=== PATIENT | female | born 1985 | race American Indian/Alaskan Native ===

== ENCOUNTER 2019-09-07 04:22 | Inpatient (IN) | payer OTHER ==
[2019-09-07] MEDS ORDERED: AMPICILLIN/NS 2 GM/100 ML 2 GM/100 ML BAG IV ONE (06:13)
[2019-09-07] MEDS ORDERED: TERBUTALINE 1 MG/1 ML INJ IVP PRN (06:13)
[2019-09-07] MEDS ORDERED: ePHEDrine SULFATE 50 MG/1 ML INJ IV PRN ×2 (06:13→08:09)
[2019-09-07] MEDS ORDERED: MINERAL OIL 30 ML ORAL LIQD PO PRN (06:13)
[2019-09-07] MEDS ORDERED: TERBUTALINE 1 MG/1 ML INJ SUB-Q PRN (06:13)
[2019-09-07] MEDS ORDERED: LIDOCAINE (2%) 20 MG/1 ML VIAL 20 ML MDV INFILTRATI ONE (06:13)
[2019-09-07] MEDS: LACTATED RINGERS 1,000 ML IV SCH ×2 (06:30→08:39)
[2019-09-07 06:53] LABS: Hematocrit 35.2 % (30.3-42.9); Hemoglobin 11.4 gm/dl (10.1-14.3); Mean Corpuscular HGB Conc 32 % (30-34); Mean Corpuscular Volume 83 fl (79-97); Platelet Count 190 K/mm3 (140-440); Red Blood Count 4.22 M/mm3 (3.65-5.03); Red Cell Distribution Width 14.8 % (13.2-15.2)
[2019-09-07] MEDS ORDERED: OXYTOCIN 20 UNIT/1000ML DRIP 20 UNITS/1,000 ML BAG IV SCH ×2 (07:00→15:00)
[2019-09-07] MEDS ORDERED: NALOXONE 2 MG/2 ML INJ IV PRN (08:09)
--- NOTE | 2019-09-07 08:26 | History and Physical Report ---
History of Present Illness Date of examination: 09/07/19 Date of admission: 09/07/19 06:14 Chief complaint: Contractions History of present illness: Pt is a 34 yo at 39.6 weeks EGA who presents with regular uterine contractions. She denies LOF or vaginal bleeding. She has received limited care with [facility] since 36 weeks EGA. Her has been complicated by Chlamydia diagnosed on 08/15, treated. She is GBS positive. 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 on 08/15) Family/Genetic History: diabetes, hypertension Social history: no significant social history - Obstetrical History Expected Date of Delivery: 09/07/19 Actual Gestation: 40 Week(s) 0 Day(s) : 1 Para: 0 Medications and Allergies Allergies Allergy/AdvReac Type Severity Reaction Status Date / Time No Known Allergies Allergy Verified 09/07/19 06:21 Active Meds: Active Medications Ephedrine Sulfate (Ephedrine Sulfate) 10 mg IV Q2M PRN PRN Reason: Hypotension Ephedrine Sulfate (Ephedrine Sulfate) 10 mg IV Q2M PRN PRN Reason: Hypotension Oxytocin/Sodium Chloride (Pitocin/Ns 20 Unit/1000ml Drip) 20 units in 1,000 mls @ 125 mls/hr IV DIRECT YEVGENIY Lactated Ringer's (Lactated Ringers) 1,000 mls @ 125 mls/hr IV DIRECT YEVGENIY Last Admin: 09/07/19 06:30 Dose: 125 mls/hr Documented by: Fentanyl/Bupivacaine/Sodium Chlor (Fentanyl-Bupiv 2 Mcg/Ml-0.125%) 200 mcg in 100 mls @ 12 mls/hr EPIDURAL TITR YEVGENIY; Protocol Mineral Oil (Mineral Oil) 30 ml PO QHS PRN PRN Reason: Constipation Naloxone HCl (Naloxone) 0.2 mg IV Q5M PRN PRN Reason: Respiratory sedation Terbutaline Sulfate (Brethine) 0.25 mg SUB-Q ONCE PRN PRN Reason: Hyperstimulation/Hypertonicity Terbutaline Sulfate (Brethine) 0.25 mg IVP ONCE PRN PRN Reason: Hyperstimulation/Hypertonicity Review of Systems All systems: negative Genitourinary: contractions, no vaginal bleeding, no leakage of fluid - Vital Signs Vital signs: Vital Signs Pulse Pulse Ox 84 96 09/07/19 04:56 09/07/19 04:56 Temp Pulse Resp BP Pulse Ox 97.7 F 80 18 123/76 100 09/07/19 05:45 09/07/19 06:16 09/07/19 05:45 09/07/19 06:02 09/07/19 06:16 - Physical Exam Lungs: Positive: Normal air movement Abdomen: Positive: soft Vagina: Positive: normal moisture Uterus: Positive: enlarged (gravid) Extremities: Positive: normal - Obstetrical FHR: category 1 Uterine Contraction Monitor Mode: External Cervical Dilatation: 6 Cervical Effacement Percentage: 70 station: -3 Uterine Contraction Pattern: Regular Uterine Tone Measurement Phase: Contraction Uterine Contraction Intensity: Strong/Firm Results Result Diagrams: 09/07/19 06:30 Abnormal lab results 09/07/19 Range/Units 06:30 MCH 27 L (28-32) pg All other labs normal. Assessment and Plan A: 34 yo at 39.6 weeks EGA GBS positive, membranes intact OP presentation Chlamydia this , treated Limited care P: Admit for labor Pain relief as requested Ampicillin for GBS prophylaxis Anticipate
[2019-09-07] MEDS ORDERED: fentaNYL-BUPIV 2 MCG/ML-0.125% 200 MCG/100 ML BAG EPIDURAL SCH (09:00)
--- NOTE | 2019-09-07 09:42 | Anesthesia Consultation ---
Anesthesia Consult and Med Hx Date of service: 09/07/19 - Airway Anesthetic Teeth Evaluation: Good ROM Head & Neck: Adequate Mental/Hyoid Distance: Adequate Mallampati Class: Class III Intubation Access Assessment: Possibly Difficult - Pulmonary Exam CTA: Yes - Cardiac Exam Cardiac Exam: RRR - Pre-Operative Health Status ASA Pre-Surgery Classification: ASA3 Proposed Anesthetic Plan: Epidural, Spinal - Pulmonary Hx Respiratory Symptoms: No - Cardiovascular System Hx Hypertension: No - Central Nervous System Hx Neuromuscular Disorder: No CVA: No Hx Back Pain: No - Endocrine Hx Renal Disease: No Hx Liver Disease: No Hx Insulin Dependent Diabetes: No Hx Non-Insulin Dependent Diabetes: No Hx Thyroid Disease: No - Hematic Hx Anemia: Yes - Other Systems Hx Obesity: Yes (BMI 41) - Additional Comments Anesthesia Medical History Comments: No prior epidurals. No hx coagulopathy or use of anticoagulants.
--- NOTE | 2019-09-07 12:26 | Event Note ---
Date: 09/07/19 Called to bedside for recurrent late decelerations, now resolved. SVE 9.5/c/-3. AROM copious clear fluid, FHT reassuring throughout. scalp electrode placed. SVE now c/c/-2. Will labor down, continue to closely monitor FHT.
[2019-09-07] MEDS ORDERED: BICITRA ORAL LIQD 30ML ONE (13:32)
[2019-09-07] MEDS ORDERED: LIDOCAINE MPF (2%) 20 MG/1 ML VIAL 5 ML ONE ×2 (13:32)
[2019-09-07] MEDS ORDERED: METOCLOPRAMIDE 10 MG/2 ML INJ ONE (13:32)
[2019-09-07] MEDS ORDERED: FAMOTIDINE 20 MG/2 ML INJ IV ONE (13:32)
[2019-09-07] MEDS ORDERED: ceFAZolin/Water 2 GM/20 ML 2 GM/20 ML SYRINGE IV ONE (13:32)
--- NOTE | 2019-09-07 13:43 | Event Note ---
Date: 09/07/19 Recurrent late decelerations noted. Trial of pushing reveals SVE 8.5/100/-3. Prolonged decels into 70's noted, with subsequent recurrent late decelerations. Decision made to proceed with primary section. Dr. Stoll notified and en route. Pt understands risks of including pain, bleeding, fever, and accidental damage to pelvic structures. She accepts blood transfusion in the event of an emergency.
[2019-09-07] MEDS ORDERED: SODIUM CHLORIDE 0.9% IRR 1,500 ML BOTTLE IR ONE (13:50)
[2019-09-07] MEDS ORDERED: WATER FOR IRRIG STERILE 1,500 ML BOTTLE IR ONE (13:50)
[2019-09-07] MEDS ORDERED: AMPICILLIN/NS 1 GM/50 ML 1 GM/50 ML BAG IV SCH (14:00)
[2019-09-07] MEDS ORDERED: NALOXONE 0.4 MG/1 ML INJ IV PRN (14:28)
[2019-09-07] MEDS ORDERED: ACETAMINOPHEN 325 MG TAB PO PRN (14:28)
[2019-09-07] MEDS ORDERED: WITCH HAZEL/ GLYCERIN PAD TP PRN (14:28)
[2019-09-07] MEDS ORDERED: MORPHINE 4 MG/1 ML INJ IV PRN (14:28)
[2019-09-07] MEDS ORDERED: LANOLIN/ZINC/DIMETHICONE (LANSINOH) 7 GM TP PRN (14:28)
--- NOTE | 2019-09-07 14:31 | Procedure Note ---
OB Delivery Note - Delivery Date of Delivery: 09/07/19 Surgeon: JUDE MAJANO Estimated blood loss: other (800 mL) - Section Preop diagnosis: nonreassuring FHR tracing Postop diagnosis: same section procedure: section, primary low transverse Disposition: PACU Complications: none - A at 1 minute: 8 at 5 minutes: 9 Infant Gender: Female (Weight of 6 pounds 14 ounces)
--- NOTE | 2019-09-07 14:33 | Operative Report ---
Operative Report Operative Report: Date of surgery: September 07, 2019 Preoperative diagnosis: at 39+6 weeks; nonreassuring heart rate tracing Postoperative diagnosis: Same as above Procedure: Primary low transverse delivery Surgeon: Lisa Stoll M.D. Anesthesia: Regional Estimated blood loss: 800 mL IV fluids: 1000 mL Findings: Liveborn female with Apgars of 8 and 9 weight 6 pounds 14 ounces Indications: 34-year-old G1, P0 at 39+6 weeks who during her intrapartum course developed a nonreassuring heart rate tracing. The patient was taken for a delivery Procedure: The patient was taken to the operating room and given regional anesthesia without complication. She was prepped and draped in a normal sterile fashion. A Pfannenstiel skin incision was made down to layer the fascia which was nicked in the midline extended laterally with the Bovie cautery. The superior aspect of the rectus fascia was grasped with [place] clamps x2 and the rectus muscles off sharply. This was done in inferior fashion as well. The rectus muscle midline and peritoneum entered bluntly. An Hugh retractor was then inserted. A bladder blade was placed. The vesicouterine peritoneum was then entered sharply with Metzenbaum scissors. A bladder flap was created digitally. A low transverse uterine incision was then made and extended digitally. There was clear fluid upon entry into the uterine cavity. The head was delivered through the incision with fundal pressure. The cord was clamped and cut x2 and infant was passed off to pediatrics. The placenta was then manually extracted. The uterus was then exteriorized and cleared of clots and debris. The uterine incision was then closed in a running locked fashion with 0 Vicryl additional imbricating stitch was applied for 2 layer closure. The serosa was then reapproximated with 3-0 Vicryl. The posterior cul-de-sac was then copiously irrigated. The uterus was replaced back into the abdomen and pelvis were the gutters were then irrigated. The Hugh retractor was then removed. The peritoneum was then reapproximated with 3-0 Vicryl incorporating the rectus muscle. The fascia was then closed with 0 Vicryl in a running fashion. The skin was then reapproximated with 3-0 Monocryl on a Nathaniel needle subcuticular fashion. Steri-Strips to place across the incision and a Crede procedures performed at the end of the surgery. A pressure dressing was applied to the inc ision. The surgery productive of a liveborn female with Apgars of 8 and 9 weight 6 pounds 14 ounces. The patient was taken to the recovery room in stable condition. All sponge laps and needle counts correct x2.
[2019-09-07] MEDS ORDERED: PHENYLEPHRINE/NS 1,000 MCG/10 ML SYRINGE (OR USE) IV ONE (14:39)
[2019-09-07] MEDS ORDERED: D5W/LACTATED RINGERS 1,000 ML IV SCH (15:00)
[2019-09-07] MEDS: KETOROLAC 30 MG/1 ML INJ IV PRN (17:23)
[2019-09-08] MEDS: KETOROLAC 30 MG/1 ML INJ IV PRN (01:24)
[2019-09-08 04:14] LABS: Hematocrit 27.8 % (30.3-42.9); Hemoglobin 9.1 gm/dl (10.1-14.3)
[2019-09-08] MEDS: oxyCODONE /ACETAMINOPHEN 5-325MG TAB PO PRN ×2 (06:07→23:49)
--- NOTE | 2019-09-08 08:01 | Progress Note ---
Assessment and Plan A: POD1 s/p primary LTCS Acute anemia due to blood loss Vital signs stable P: Routine pp care Ferrous sulfate supplementation Breast feeding education provided Anticipate d/c to home on POD3 Subjective - Subjective Date of service: 09/08/19 Principal diagnosis: s/p primary LTCS Interval history: POD1 s/p primary LTCS for NRFHT Pt is a 34 yo at 39.6 weeks EGA who presents with regular uterine contractions. She denies LOF or vaginal bleeding. She has received limited care with [facility] since 36 weeks EGA. Her has been complicated by Chlamydia diagnosed on 08/15, treated. She is GBS positive. Patient reports: appetite normal, voiding normally, pain well controlled, ambulating normally, no flatus [place]: doing well, bottle feeding (attempting to breast feed) Objective - Vital Signs Latest vital signs: Vital Signs Temp Pulse Resp BP BP Pulse Ox 09/08/19 06:07 20 09/08/19 02:05 98.7 F 83 18 105/53 98 09/08/19 01:24 20 09/07/19 22:07 20 09/07/19 21:29 99.5 F 88 20 116/66 98 09/07/19 17:24 98.3 F 99 H 16 128/74 100 09/07/19 15:45 98.3 F 95 H 15 117/69 100 09/07/19 15:30 95 H 16 119/70 100 09/07/19 15:15 87 15 119/69 100 09/07/19 15:00 94 H 14 113/71 100 09/07/19 14:50 88 16 112/50 100 09/07/19 14:45 96 H 18 116/54 100 09/07/19 14:40 98.3 F 97 H 16 114/49 100 09/07/19 13:32 87 100 09/07/19 13:27 85 93 09/07/19 13:25 84 104/70 94 09/07/19 13:22 81 100 09/07/19 13:17 86 100 09/07/19 13:16 102 H 91 09/07/19 13:12 84 106/57 100 09/07/19 13:07 93 H 100 09/07/19 13:02 90 96 09/07/19 12:58 78 92 09/07/19 12:57 90 116/55 98 09/07/19 12:52 82 100 09/07/19 12:47 82 99 09/07/19 12:42 75 100 09/07/19 12:40 80 108/72 09/07/19 12:37 77 100 09/07/19 12:32 72 100 09/07/19 12:27 79 100 09/07/19 12:26 82 117/77 09/07/19 12:22 77 100 09/07/19 12:17 82 100 09/07/19 12:12 87 100 09/07/19 12:11 81 107/65 09/07/19 12:07 78 100 09/07/19 12:02 81 100 09/07/19 11:59 86 94 09/07/19 11:57 82 114/64 100 09/07/19 11:52 77 100 09/07/19 11:47 94 H 100 09/07/19 11:46 89 86 09/07/19 11:42 82 100 09/07/19 11:40 78 112/64 09/07/19 11:37 85 100 09/07/19 11:32 88 92 09/07/19 11:27 81 112/64 100 09/07/19 11:25 79 84 09/07/19 11:22 81 100 09/07/19 11:17 95 H 86 09/07/19 11:13 77 74 L 09/07/19 11:12 78 100 09/07/19 11:10 78 90/58 09/07/19 11:07 80 100 09/07/19 11:02 79 100 09/07/19 11:01 79 91 09/07/19 10:57 73 100 09/07/19 10:55 89 92/59 09/07/19 10:52 80 100 09/07/19 10:47 87 100 09/07/19 10:42 68 100 09/07/19 10:40 65 103/51 09/07/19 10:37 64 100 09/07/19 10:32 61 100 09/07/19 10:27 91 H 97/54 100 09/07/19 10:22 75 100 09/07/19 10:17 66 100 09/07/19 10:12 68 100 09/07/19 10:10 76 100/54 09/07/19 10:07 71 100 09/07/19 10:02 75 100 09/07/19 09:57 75 100 09/07/19 09:56 69 99/56 09/07/19 09:52 72 100 09/07/19 09:47 71 100 09/07/19 09:42 71 100 09/07/19 09:41 74 104/56 09/07/19 09:37 73 100 09/07/19 09:33 81 96/49 09/07/19 09:32 82 100 09/07/19 09:27 79 100 09/07/19 09:22 86 100 09/07/19 09:17 85 100 09/07/19 09:12 78 100 09/07/19 09:09 88 101/51 09/07/19 09:07 80 95/53 100 09/07/19 09:05 86 116/59 09/07/19 09:03 84 119/58 09/07/19 09:02 84 100 09/07/19 09:01 75 115/55 09/07/19 08:59 70 116/56 09/07/19 08:57 77 112/60 99 09/07/19 08:55 82 113/57 09/07/19 08:53 87 110/60 09/07/19 08:52 81 100 09/07/19 08:51 75 121/60 09/07/19 08:49 80 121/57 09/07/19 08:47 85 119/57 100 09/07/19 08:45 84 137/74 09/07/19 08:43 88 130/71 09/07/19 08:42 84 99 09/07/19 08:41 83 138/84 09/07/19 08:39 81 132/82 09/07/19 08:37 90 132/82 99 09/07/19 08:35 83 124/77 09/07/19 08:33 93 H 131/77 09/07/19 08:32 88 100 09/07/19 08:31 84 128/77 09/07/19 08:27 90 100 Intake and Output 09/07/19 09/07/19 09/08/19 15:59 23:59 07:59 Intake Total 1468.75 360 360 Output Total 500 1000 Balance 968.75 360 -640 Intake: IV 1468.75 Lactated Ringers 1,000 ml 268.75 @ 125 mls/hr IV DIRECT YEVGENIY Rx#:[id number] Oral 240 Intake, Free Water 360 120 Output: Urine 500 1000 Indwelling Catheter 1000 Uretheral (Joseph) 200 Other: Total, Intake Amount 240 Total, Output Amount 1000 Estimated Blood Loss 800 - Exam Lungs: Present: Normal air movement Abdomen: Present: soft. Absent: distention Uterus: Present: firm, fundal height below umbilicus. Absent: bogginess Extremities: Present: normal Incision: Present: dressed - Labs Labs: Abnormal lab results 09/08/19 Range/Units 03:51 Hgb 9.1 L (10.1-14.3) gm/dl Hct 27.8 L D (30.3-42.9) %
--- NOTE | 2019-09-08 10:07 | Progress Note ---
Subjective Date of service: 09/08/19 Principal diagnosis: s/p primary LTCS Interval history: 1st POD after Patient is comfortable, ambulates well. Some pain is well controlled with pain meds. No residual neurological deficit. Site of spinal/epidural is intact. No anesthesia complications Objective - Constitutional Vitals: Vital Signs - 12hr 09/07/19 09/08/19 09/08/19 22:07 01:24 02:05 Temperature 98.7 F Pulse Rate 83 Respiratory 20 20 18 Rate Blood Pressure 105/53 O2 Sat by Pulse 98 Oximetry 09/08/19 09/08/19 09/08/19 06:07 06:41 08:26 Temperature 98.3 F 98.1 F Pulse Rate 81 74 Respiratory 20 20 20 Rate Blood Pressure 97/58 106/73 O2 Sat by Pulse 98 97 Oximetry - Labs CBC & Chem 7: 09/08/19 03:51 Labs: Abnormal lab results 09/08/19 Range/Units 03:51 Hgb 9.1 L (10.1-14.3) gm/dl Hct 27.8 L D (30.3-42.9) %
[2019-09-08] MEDS: IBUPROFEN 800 MG TAB PO PRN (15:12)
[2019-09-08] MEDS ORDERED: MAGNESIUM HYDROXIDE (MOM) ORAL LIQD UDC PO PRN (16:00)
[2019-09-09] MEDS: IBUPROFEN 800 MG TAB PO PRN (05:31)
--- NOTE | 2019-09-09 08:06 | Progress Note ---
Assessment and Plan A/P POD 2 primary csec doing well VSS acute anemia on iron d/c home Subjective - Subjective Date of service: 09/09/19 Principal diagnosis: s/p primary LTCS Patient reports: appetite normal, voiding normally, pain well controlled, flatus, ambulating normally : doing well Objective - Vital Signs Latest vital signs: Vital Signs Temp Pulse Resp BP Pulse Ox 09/09/19 05:31 20 09/09/19 00:11 97.9 F 90 18 98/63 99 09/08/19 23:49 20 09/08/19 16:24 98.3 F 70 14 106/67 100 09/08/19 12:45 97.8 F 88 20 110/70 100 09/08/19 08:26 98.1 F 74 20 106/73 97 Intake and Output 09/08/19 09/09/19 09/09/19 23:59 07:59 15:59 Intake Total 180 360 Balance 180 360 Intake: Intake, Free Water 180 360 Other: # Voids Void 1 1 - Exam Breasts: Present: normal Cardiovascular: Present: Regular rate, Normal S1 Lungs: Present: Clear to auscultation, Normal air movement Abdomen: Present: normal appearance, soft, normal bowel sounds. Absent: distention, tenderness, guarding Vulva: both: normal Uterus: Present: normal, firm, fundal height below umbilicus. Absent: bogginess, tenderness Extremities: Present: normal Deep Tendon Reflex Grade: Normal +2 Incision: Present: normal, dry, intact
--- NOTE | 2019-09-09 08:09 | Discharge Summary ---
Providers - Providers Date of Admission: 09/07/19 06:14 Date of discharge: 09/09/19 Attending physician: LES WHARTON MD Primary care physician: LES WHARTON MD Hospitalization Reason for admission: active labor Delivery: Procedure: section Episiotomy: none Laceration: none Incision: normal, dry, intact Other procedures: none complications: none Discharge diagnosis: IUP at term delivered baby: female Hospital course: Primary csec routine care [facility] acute anemia on iron Condition at discharge: Good Disposition: DC-01 TO HOME OR SELFCARE Plan - Discharge Medications Prescriptions: Ferrous Sulfate [Feosol 325 MG tab] 325 mg PO BID #60 tablet Ibuprofen [Motrin] 600 mg PO Q6H PRN #60 tablet PRN Reason: Pain - Provider Discharge Summary Activity: routine, no sex for 6 weeks, no strenuous exercise Diet: routine Instructions: routine Additional instructions: [] Smoking cessation referral if applicable(refer to patient education folder for contact #) [] Refer to [facility] Booklet Call your doctor immediately for: * Fever > 100.5 * Heavy vaginal bleeding ( >1 pad per hour) * Severe persistent headache * Shortness of breath * Reddened, hot, painful area to leg or breast * Drainage or odor from incision. * Keep incision clean and dry at all times and follow doctor's instructions regarding bathing/showering - Follow up plan Follow up: LES WHARTON MD [Primary Care Provider] - 14 Days
[2019-09-09] MEDS: oxyCODONE /ACETAMINOPHEN 5-325MG TAB PO PRN (10:37)
[2019-09-09 14:55] VITALS: BP 124/78
== END 2019-09-09 14:15 | disposition home or self-care (01) | DRG 787 ==
LOC: TRG 04:22 → LD 06:14 → OB 16:21
PROVIDERS: ADMIT Obstetrics & Gynecology; ATTEND Obstetrics & Gynecology
PROC: 10D00Z1 Extraction of Products of Conception, Low, Open Approach (ICD-10-PCS; principal; 2019-09-07)
DX: O76 Abnormality in fetal heart rate and rhythm complicating labor and delivery (principal); D62 Acute posthemorrhagic anemia; O98.82 Other maternal infectious and parasitic diseases complicating childbirth; Z3A.39 39 weeks gestation of pregnancy; O99.214 Obesity complicating childbirth; E66.9 Obesity, unspecified; Z37.0 Single live birth; O99.02 Anemia complicating childbirth; Z82.49 Family history of ischemic heart disease and other diseases of the circulatory system; Z83.3 Family history of diabetes mellitus
CPT/HCPCS: 36415; 85014; 85018; 85027; 86850; 86900; 86901; G0378; A6250; J0290; J0690; J1885; J2270; J2370; J2590; J2765; J7120; J7121

== ENCOUNTER 2021-06-25 07:11 | Inpatient (IN) | payer OTHER ==
[2021-06-25] MEDS ORDERED: BICITRA ORAL LIQD 30ML PO NR (08:15)
[2021-06-25] MEDS ORDERED: FAMOTIDINE 20 MG/2 ML INJ IV NR (08:15)
[2021-06-25] MEDS ORDERED: METOCLOPRAMIDE 10 MG/2 ML INJ IV NR (08:15)
--- NOTE | 2021-06-25 08:26 | Anesthesia Day of Surgery ---
Anesthesia Day of Surgery - Day of Surgery Patient Examined: Yes Patient H&P Reviewed: Yes Patient is NPO: Yes
--- NOTE | 2021-06-25 08:28 | Anesthesia Consultation ---
Anesthesia Consult and Med Hx Date of service: 06/25/21 - Airway Anesthetic Teeth Evaluation: Good ROM Head & Neck: Adequate Mental/Hyoid Distance: Adequate Mallampati Class: Class II Intubation Access Assessment: Probably Good - Pulmonary Exam CTA: Yes - Cardiac Exam Cardiac Exam: RRR - Pre-Operative Health Status ASA Pre-Surgery Classification: ASA3 Proposed Anesthetic Plan: Epidural, Spinal - Pulmonary Hx Smoking: No Hx Asthma: No Hx Respiratory Symptoms: No SOB: No COPD: No Home Oxygen Therapy: No Hx Pneumonia: No Hx Sleep Apnea: No - Cardiovascular System Hx Hypertension: No Hx Coronary Artery Disease: No Hx Heart Attack/AMI: No Hx Angina: No Hx Percutaneous Transluminal Coronary Angioplasty (PTCA): No Hx Cardia Arrhythmia: No Hx Pacemaker: No Hx Internal Defibrillator: No Hx Valvular Heart Disease: No Hx Heart Murmur: No Hx Peripheral Vascular Disease: No - Central Nervous System Hx Neuromuscular Disorder: No Hx Seizures: No CVA: No Hx Back Pain: Yes Hx Psychiatric Problems: No - Gastrointestinal Hx Ulcer: No Hx Gastroesophageal Reflux Disease: No - Endocrine Hx Renal Disease: No Hx End Stage Renal Disease: No Hx Cirrhosis: No Hx Liver Disease: No Hx Insulin Dependent Diabetes: No Hx Non-Insulin Dependent Diabetes: No Hx Thyroid Disease: No Hx Hypothyroidism: No Hx Hyperthyroidism: No - Hematic Hx Anemia: Yes (HASN'T TAKEN HER IRON TABS "IN AWHILE".) Hx Sickle Cell Disease: No - Other Systems Hx Alcohol Use: No Hx Substance Use: No Hx Cancer: No Hx Obesity: Yes (BMI 41)
[2021-06-25] MEDS ORDERED: ONDANSETRON 4 MG/2 ML INJ ONE (08:49)
[2021-06-25] MEDS ORDERED: BUPIVACAINE /DEX-WATER 0.75% (2 ML) AMPULE INFILTRATI ONE (08:49)
[2021-06-25] MEDS ORDERED: OXYTOCIN DRIP 30 UNITS/500 ML BAG IV SCH ×2 (09:00→17:00)
[2021-06-25] MEDS: LACTATED RINGERS 1,000 ML IV SCH ×2 (09:00→09:34)
[2021-06-25] MEDS ORDERED: ceFAZolin/Water 2 GM/20 ML 2 GM/20 ML SYRINGE IV NR (09:00)
[2021-06-25 09:01] LABS: Basophils % (Auto) 0.1 % (0.0-1.8); Eosinophils % (Auto) 0.3 % (0.0-4.3); Hematocrit 33.8 % (30.3-42.9); Hemoglobin 10.5 gm/dl (10.1-14.3); Lymphocytes # (Auto) 1.5 K/mm3 (1.2-5.4); Lymphocytes % (Auto) 19.7 % (13.4-35.0); Mean Corpuscular HGB Conc 31 % (30-34); Mean Corpuscular Volume 79 fl (79-97); Monocytes # (Auto) 0.5 K/mm3 (0.0-0.8); Monocytes % (Auto) 6.7 % (0.0-7.3); Platelet Count 219 K/mm3 (140-440); Red Cell Distribution Width 17.8 % (13.2-15.2)
--- NOTE | 2021-06-25 10:09 | History and Physical Report ---
History of Present Illness Date of examination: 06/25/21 Date of admission: 06/25/21 Chief complaint: abdominal pain History of present illness: at 38.5wks by LMP c/w U/S at [facility] and later when records obtained, her clinic records. care at [facility]. Pt admits to movement, denies LOF or vag bleed. Pt admits to feeling her ctx which are painful and declines TOLAC. Pt states she does not believe she can push because she does not like to "bear down". Past History Past Medical History: other (morbid obesity) Past Surgical History: section (x1) Social history: no significant social history - Obstetrical History Expected Date of Delivery: 07/04/21 Actual Gestation: 38 Week(s) 5 Day(s) : 2 Hx # Term Pregnancies: 1 Number of Living Children: 1 Medications and Allergies Allergies Allergy/AdvReac Type Severity Reaction Status Date / Time No Known Allergies Allergy Verified 09/07/19 06:21 Home Medications Medication Instructions Recorded Confirmed Last Taken Type Ferrous Sulfate [Feosol 325 MG tab] 325 mg PO BID #60 tablet 09/08/19 Unknown Rx Ibuprofen [Motrin] 600 mg PO Q6H PRN #60 tablet 09/08/19 Unknown Rx oxyCODONE /ACETAMINOPHEN [Percocet 1 tab PO Q6HR PRN #30 tablet 09/09/19 Un known Rx 5/325] Active Meds: Active Medications Citric Acid/Sodium Citrate (Bicitra Oral Liqd 30ml) 30 ml PO ONCE NR Stop: 06/25/21 12:00 Last Admin: 06/25/21 09:32 Dose: 30 ml Famotidine (Famotidine 20 Mg/2 Ml Inj) 20 mg IV ONCE NR Stop: 06/25/21 13:00 Last Admin: 06/25/21 09:33 Dose: 20 mg Lactated Ringer's (Lactated Ringers) 1,000 mls @ 2,250 mls/hr IV PREOP YEVGENIY Stop: 06/26/21 08:42 Last Admin: 06/25/21 09:34 Dose: 2,250 mls/hr Oxytocin/Sodium Chloride (Pitocin/Ns 30 Unit/500ml) 30 units in 500 mls @ 0 mls/hr IV TITR YEVGENIY; Protocol Cefazolin Sodium (Ancef/Sterile Water 2 Gm/20 Ml) 2 gm in 20 mls @ 80 mls/hr IV PREOP NR; Protocol Stop: 06/25/21 20:00 Metoclopramide HCl (Metoclopramide 10 Mg/2 Ml Inj) 10 mg IV ONCE NR Stop: 06/25/21 13:00 Last Admin: 06/25/21 09:33 Dose: 10 mg Review of Systems All systems: negative (ctx) - Vital Signs Vital signs: Vital Signs Temp Pulse Resp BP Pulse Ox 98.0 F 103 H 22 116/73 98 06/25/21 07:40 06/25/21 07:40 06/25/21 07:40 06/25/21 07:40 06/25/21 07:40 Temp Pulse Resp BP Pulse Ox 98.0 F 96 H 22 116/73 99 06/25/21 07:40 06/25/21 08:16 06/25/21 07:40 06/25/21 07:40 06/25/21 08:16 - Physical Exam Breasts: Positive: deferred Cardiovascular: Regular rate Lungs: Positive: Normal air movement Genitourinary (Female): Positive: normal perenium Vagina: Positive: normal moisture Uterus: Positive: enlarged (non-tender, gravid ) - Obstetrical FHR: category 1 Uterine Contraction Monitor Mode: External Cervical Dilatation: 3 Cervical Effacement Percentage: 80 station: -2 Uterine Contraction Pattern: Regular Results Result Diagrams: 06/25/21 08:45 Abnormal lab results 06/25/21 Range/Units 08:45 MCH 25 L (28-32) pg RDW 17.8 H (13.2-15.2) % Seg Neutrophils % 73.2 H (40.0-70.0) % All other labs normal. Assessment and Plan Term with previous c/section and declines TOLAC; morbid obesity 1. Discussed at length the benefits and risks of TOLAC, pt declines and desires repeat c/section and consents obtained 2. NICU and anesthesiologist aware 3. All questions encouraged and answered
--- NOTE | 2021-06-25 10:24 | Ultrasound Report ---
ULTRASOUND OBSTETRIC LIMITED INDICATION / CLINICAL INFORMATION: gestational age, placenta location. Clinical Gestational Age (GA) in weeks, days: 38 weeks 5 days TECHNIQUE: Transabdominal. COMPARISON: None available. FINDINGS: Single live intrauterine in cephalic presentation. Total ultrasound age of 36 weeks and 2 d ays. MEASUREMENTS: - Biparietal Diameter = 8.8 cm = 35 weeks 2 days - Head Circumference = 32.5 cm = 36 weeks 6 days - Abdominal Circumference = 32 cm = 35 weeks 6 days - Femur Length = 7.2 cm = 37 weeks 0 days - Estimated Weight (in grams, if calculated): 2876 - Heart Rate (beats per minute): 153 AMNIOTIC FLUID INDEX (cm) = 9.1 (normal = 7-24 cm) ADDITIONAL FINDINGS: Anterior/left lateral placenta appears free of the os. No evidence of placental abruption. IMPRESSION: Single live intrauterine with ultrasound age of 36 weeks 2 days, as above. Clinical gestati onal age is 38 weeks and 5 days. No significant abnormality. Signer Name: Liborio Gray MD Signed: 06/25/2021 10:19 AM Workstation Name: [id number]
[2021-06-25] MEDS ORDERED: ceFAZolin/STERILE WATER 2 GM/20 ML SYRINGE IV ONE (10:49)
[2021-06-25] MEDS ORDERED: LACTATED RINGERS 1,000 ML ONE ×2 (10:56→11:37)
[2021-06-25] MEDS ORDERED: ceFAZolin 1 GM VIAL ONE (11:09)
[2021-06-25] MEDS ORDERED: SODIUM CHLORIDE 0.9% IRR 1,500 ML BOTTLE IR ONE (11:25)
[2021-06-25] MEDS ORDERED: WATER FOR IRRIG STERILE 1,500 ML BOTTLE IR ONE (11:25)
[2021-06-25] MEDS ORDERED: BUPIVACAINE/PF (0.25%) 2.5 MG/ML 30 ML VIAL INFILTRATI ONE (12:34)
[2021-06-25] MEDS ORDERED: dexAMETHasone 20 MG/5 ML VIAL ONE (12:34)
--- NOTE | 2021-06-25 13:54 | Progress Note ---
Spinal Anesthesia Block - Spinal Anesthesia Block Start Time: 10:39 Stop Time: 10:45 Performed by:: STONEY GARLAND Procedure: Patient IDed, H&P reviewed, all questions and concerns were answered, and consent was signed. Timeout was performed at bedside. Patient in sitting position. Sterile prep and drape was performed. [3] ml of 1% lidocaine skin wheal at L[3]- L [4]. Needle introducer advanced. 25 gauge spinal needle advanced. Clear, free flowing CSF. negative blood, negative paresthesia. Spinal dose given. All needles removed. Patient tolerated procedure.
--- NOTE | 2021-06-25 13:55 | Progress Note ---
Regional Anesthesia Block - Regional Anesthesia Block Start Time: 13:25 Stop Time: : Performed By:: STONEY GARLAND Procedure: Patient consented for TAP block for post surgical pain management. Patient identified, monitors placed, and time out performed. TAP identified bilaterally via ultrasound. Skin prepped bilaterally with [chlorhexidine] and [22g stimuplex] needle advanced to the TAP. [Marcaine 0.25% 30ml] injected under ultrasound guidance on the [left] side. [Marcaine 0.25% 30ml] injected under ultrasound guidance on the [right] side. Negative aspiration every 5mL, No change in heart rate or rhythm. Patient tolerated the procedure well. No apparent complications seen.
--- NOTE | 2021-06-25 14:44 | Procedure Note ---
OB Delivery Note - Delivery Date of Delivery: 06/25/21 Surgeon: AICHA TERRY Estimated blood loss: other (550cc) - Section Preop diagnosis: repeat , other (morbid obesity, term preg at 38.5wks, active labor and declines TOLAC) Postop diagnosis: same section procedure: repeat low transverse Disposition: floor Complications: none Narrative: Date: 06/25/21 Surgeon: Aicha Terry MD Preop Dx: IUP at 38.5wks, active labor, previous c/section x1; Declines TOLAC; Covid positive; morbid obesity Postop Dx: same Procedure : Repeat low transverse section Anesthesia: spinal Intake: 2500cc crystalloids Output: 350cc clear urine EBL: 550cc After the risks, benefits and alternatives of procedure discussed, patient signed consents and was taken to the operating room. Pt was given spinal anesthesia. After same was adequate, patient was prepped and draped in the usu al sterile fashion. Joseph catheter in place and draining clear urine. Pt was given prophylactic antibiotic per protocol and time out was done Pfannenstiel skin incision was made thru previous scacr and taken sharply to the fascia and the incision extended using electrocautery. Superior edge of the fascia was grasped with brooke clamps and the rectus muscle using blunt dissection and also using electrocautery. Figure of 8 suture of 0-vicryl placed for active bleeder to left rectus muscle. Lower portion of the fascia also using electrocautery. Rectus muscle in the midline sharply and Peritoneal cavity entered sharply and extended with good visualization of the bladder. Hugh retractor placed without difficulty. The bladder was adherent to upper and lower uterine segment and same was separately gently using metzenbaum scissors without bladder injury until thin lower uterine segment was cleared. Bladder bladder placed without difficulty. Thin Lower uterine segment then entered transversely and amniotic sac entered using allys clamps. Uterine incision extended using bandage scissors. delivered, bulb suctioned, cord clamped and baby handed to waiting pediatricians. Placenta was then manually delivered completely and uterine cavity cleared of all clots and debri. The uterus was not exteriorized and closed in 2 layers using 0-monocryl suture in a running locked fashion and then an additional layer of imbrication suture. Surgicel powder placed along the incision site. Excellent hemostasis noted. The gutters were cleared of clots and debri and anterior peritoneum and scar and rectus muscle reapproximated using 0-vicryl suture in a running fashion. Rectus fascia closed with 0-vicryl suture and subcutaneous tissue copiously irr igated with normal saline and re-approximated using 3-0 vicryl suture. Excellent hemostasis remains. The skin was closed with 4-0 monocryl suture subcutaneously and steristrips placed with pressure dressing. Sponge, lap, instrument and needle counts x3 were normal. Patient tolerated the procedure well and was taken to recovery room stable. Findings: Viable female , APGARS 8/9 and weight 4130g. Thin lower uterine segment with bladder peritoneum adherent to upper and lower segment, normal tubes and ovaries bilaterally. Clear amniotic fluid. - Infant A at 1 minute: 8 at 5 minutes: 9 Gender: Female (clear fluid; wt 4130g)
[2021-06-25] MEDS ORDERED: ACETAMINOPHEN 325 MG TAB PO PRN (17:00)
[2021-06-25] MEDS ORDERED: ONDANSETRON 4 MG/2 ML INJ IV PRN (17:00)
[2021-06-25] MEDS ORDERED: LANOLIN/ZINC/DIMETHICONE (LANSINOH) 7 GM TP PRN (17:00)
[2021-06-25] MEDS ORDERED: IBUPROFEN 600 MG TAB PO PRN (17:00)
[2021-06-25] MEDS ORDERED: MORPHINE 4 MG/1 ML INJ IV PRN (17:00)
[2021-06-25] MEDS ORDERED: WITCH HAZEL/ GLYCERIN PAD TP PRN (17:00)
[2021-06-25] MEDS ORDERED: NALOXONE 0.4 MG/1 ML INJ IV PRN (17:00)
[2021-06-25] MEDS ORDERED: PROMETHAZINE 25 MG RECT SUPP PR PRN (17:00)
[2021-06-25] MEDS: KETOROLAC 30 MG/1 ML INJ IV PRN ×2 (18:16→23:20)
[2021-06-25] MEDS ORDERED: SENNOSIDES 8.6 MG TAB PO PRN (22:00)
[2021-06-26] MEDS: KETOROLAC 30 MG/1 ML INJ IV PRN (05:46)
[2021-06-26 07:59] LABS: Basophils % (Auto) 0.2 % (0.0-1.8); Hematocrit 28.8 % (30.3-42.9); Hemoglobin 9.1 gm/dl (10.1-14.3); Lymphocytes # (Auto) 1.8 K/mm3 (1.2-5.4); Mean Corpuscular HGB Conc 32 % (30-34); Mean Corpuscular Volume 78 fl (79-97); Monocytes # (Auto) 0.9 K/mm3 (0.0-0.8); Monocytes % (Auto) 8.4 % (0.0-7.3); Platelet Count 189 K/mm3 (140-440); Red Cell Distribution Width 17.5 % (13.2-15.2)
--- NOTE | 2021-06-26 09:26 | Progress Note ---
Assessment and Plan A: POD #1 +Covid (Asymptomatic) Asymptomatic Anemia P: Follow Routine PostOp Orders Standard Covid Isolation Precautions Continue PO FeSO4 as ordered Subjective - Subjective Date of service: 06/26/21 Patient reports: appetite normal, voiding normally, pain well controlled, flatus, ambulating normally : doing well, bottle feeding Objective - Vital Signs Latest vital signs: Vital Signs Temp Pulse Resp BP BP Pulse Ox Pulse Ox 06/26/21 08:27 98 06/26/21 08:06 97.5 F L 77 18 121/75 100 06/26/21 06:46 98.5 F 85 18 127/79 98 06/26/21 05:46 18 99 06/26/21 01:07 98.4 F 89 16 114/70 96 06/25/21 23:50 98 06/25/21 23:20 18 98 06/25/21 21:30 98.5 F 98 H 18 117/77 98 06/25/21 19:15 99 06/25/21 15:10 98.5 F 100 H 20 106/62 100 98 06/25/21 14:45 98.0 F 88 18 102/60 100 06/25/21 14:30 80 18 108/68 100 06/25/21 14:15 90 17 98/69 100 06/25/21 14:00 97 H 16 96/62 100 06/25/21 13:45 97 H 16 86/53 100 06/25/21 13:40 88 17 96/56 100 06/25/21 13:38 97.8 F 87 16 92/53 100 Intake and Output 06/25/21 06/26/21 06/26/21 22:59 06:59 14:59 Intake Total 420 720 120 Output Total 2300 1500 600 Balance -1880 -780 -480 Intake: IV 100 ceFAZolin 2 GM In NaCl 0. 100 9% 100 ml @ 200 mls/hr IV Q8H [facility] Rx#:[id number] Oral 320 240 120 Intake, Free Water 480 Output: Urine 2300 1500 600 Indwelling Catheter 1900 400 Uretheral (Joseph) 400 600 Void 500 600 Other: Total, Intake Amount 200 240 120 Total, Output Amount 400 500 600 - Exam Breasts: Present: normal Cardiovascular: Present: Regular rate Lungs: Present: Clear to auscultation, Normal air movement Abdomen: Present: normal appearance, soft, normal bowel sounds Uterus: Present: normal, firm, fundal height at umbilicus Extremities: Present: normal Incision: Present: dry, dressed - Labs Labs: Abnormal lab results 06/25/21 06/26/21 Range/Units 09:20 07:22 Hgb 9.1 L (10.1-14.3) gm/dl Hct 28.8 L (30.3-42.9) % MCV 78 L (79-97) fl MCH 25 L (28-32) pg RDW 17.5 H (13.2-15.2) % [place] % (Auto) 8.4 H (0.0-7.3) % [place] # (Auto) 0.9 H (0.0-0.8) K/mm3 Seg Neutrophils % 74.4 H (40.0-70.0) % Seg Neutrophils # 7.9 H (1.8-7.7) K/mm3 SARS-CoV-2 (PCR) Positive A (Negative)
--- NOTE | 2021-06-26 10:35 | Post Anesthesia Evaluation ---
- Post Anesthesia Evaluation Patient Participated: Yes Airway Patent: Yes Stable Respiratory Function: Yes Nausea/Vomiting: No Temp > 96.8F: Yes Pain Manageable: Yes Adequeate Hydration: Yes Anesthesia Complications: No Block Receding Appropriately: Yes Patient on Ventilator: No
[2021-06-26] MEDS: PRENATAL VIT27-FE FUMARATE-FOLIC ACID VIT TAB PO SCH (12:11)
[2021-06-26] MEDS: IBUPROFEN 800 MG TAB PO PRN ×2 (12:11→17:26)
[2021-06-26] MEDS: FERROUS SULFATE 325 MG TAB PO SCH (12:11)
[2021-06-26] MEDS: oxyCODONE /ACETAMINOPHEN 5-325MG TAB PO PRN ×2 (14:05→20:09)
[2021-06-27] MEDS: IBUPROFEN 800 MG TAB PO PRN ×3 (00:45→16:17)
[2021-06-27] MEDS: PRENATAL VIT27-FE FUMARATE-FOLIC ACID VIT TAB PO SCH (08:59)
[2021-06-27] MEDS: FERROUS SULFATE 325 MG TAB PO SCH (08:59)
[2021-06-27] MEDS: oxyCODONE /ACETAMINOPHEN 5-325MG TAB PO PRN ×2 (08:59→21:45)
--- NOTE | 2021-06-27 12:03 | Consultation ---
History of Present Illness - Reason for Consult Consult date: 06/27/21 Reason for consult: MHE - Chief Complaint Chief complaint: abdominal pain - History of Present Psychiatric Illness The patient was seen today. She is a 36y/o female admitted for childbirth. She is calm, cooperative, pleasant and polite. The patient's mother is at bedside. She gives me permission to speak in front of her. 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 She says but she's been managing things okay. She says this is her second and it wasn't too bad. The patient says she's never been on any meds. But states she would like resources to pursue it in the future. She denies any illicit drug use, alcohol or nicotine. She says she sleeps well. The patient says right now she feels fine. She denies SI/HI or ever having an attempt. The patient denies any fear of endangerment for herself or her child. She denies hallucinations of any kind. The patient says she lives alone with her children. REVIEW OF SYSTEMS Constitutional: Negative for weight loss ENT: Runny note Respiratory: Cough All other systems reviewed and are negative MENTAL STATUS EXAMINATION General Appearance and Behavior: Age appropriate, good hygiene, wearing appropriate clothes. calm, cooperative, polite and pleasant Cooperation: Cooperative Psychomotor Behavior: Psychomotor normal Mood: happy Affect and affective range: Congruent with stated mood Thought Process: Goal directed Thought Content: Reality oriented Speech: Normal tone and pace Suicidal Ideation: Denies Homicidal Ideation: Denies Hallucinations: Denies Delusions: Denies Impulse Control: Normal Insight and Judgment: Normal insight and fair judgment Memory: Normal Attention: Attentive Orientation: a/o x 3 Assessment (1) Mental Health Eval Current Visit: Yes Status: Acute Treatment Plan No meds at this time Medical: per primary Disposition: Do not recommend acute psychiatric inpatient treatment Music Instructor to give resources for counseling services Will sign off. Thanks Case staffed with Dr. Dickey Medications and Allergies Allergies Allergy/AdvReac Type Severity Reaction Status Date / Time No Known Allergies Allergy Verified 06/26/21 01:43 Home Medications Medication Instructions Recorded Confirmed Last Taken Type Ferrous Sulfate [Feosol 325 MG tab] 325 mg PO BID #60 tablet 09/08/19 06/26/21 Unknown Rx Ibuprofen [Motrin] 600 mg PO Q6H PRN #60 tablet 04/02/20 01/19/22 Unknown Rx oxyCODONE /ACETAMINOPHEN [Percocet 1 tab PO Q6HR PRN #30 tablet 09/09/19 06/26/21 Unknown Rx 5/325] Ibuprofen [Motrin] 800 mg PO Q8HR PRN #40 tablet 06/25/21 Unknown Rx oxyCODONE /ACETAMINOPHEN [Percocet 1 tab PO Q4HR PRN 21 Days #30 tab 06/25/21 Unknown Rx 5/325] Active Meds: Active Medications Acetaminophen (Acetaminophen 325 Mg Tab) 650 mg PO Q4H PRN PRN Reason: Fever >100.5/MCGARRY Ferrous Sulfate (Ferrous Sulfate 325 Mg Tab) 325 mg PO QDAY [facility] Last Admin: 06/27/21 08:59 Dose: 325 mg Oxytocin/Sodium Chloride (Pitocin/Ns 30 Unit/500ml) 30 units in 500 mls @ 0 mls/hr IV TITR YEVGENIY; Protocol Oxytocin/Sodium Chloride (Pitocin/Ns 30 Unit/500ml) 30 units in 500 mls @ 40 mls/hr IV TITR YEVGENIY; Protocol Ibuprofen (Ibuprofen 600 Mg Tab) 600 mg PO Q6H PRN PRN Reason: Pain, Mild (1-3) Ibuprofen (Ibuprofen 800 Mg Tab) 800 mg PO Q6H PRN PRN Reason: Pain, Moderate (4-6) Last Admin: 06/27/21 06:23 Dose: 800 mg Morphine Sulfate (Morphine 4 Mg/1 Ml Inj) 4 mg IV Q4H PRN PRN Reason: Pain , Severe (7-10) Multi-Ingredient Ointment (Lanolin/Zinc/Dimethicone (Lansinoh) 7 Gm) 1 applic TP PRN PRN PRN Reason: dryness/cracking Multivitamins/Iron/Calcium ( [id number] Fumarate-Folic Acid Vit Tab) 1 each PO QDAY [facility] Last Admin: 06/27/21 08:59 Dose: 1 each Naloxone HCl (Naloxone 0.4 Mg/1 Ml Inj) 0.1 mg IV Q2MIN PRN PRN Reason: Res Rate </= 8 or 02 SAT < 92% Ondansetron HCl (Ondansetron 4 Mg/2 Ml Inj) 4 mg IV Q8H PRN PRN Reason: Nausea And Vomiting Oxycodone/Acetaminophen (Oxycodone /Acetaminophen 5-325mg Tab) 2 tab PO Q4H PRN PRN Reason: Pain, Moderate (4-6) Last Admin: 06/27/21 08:59 Dose: 2 tab Promethazine HCl (Promethazine 25 Mg Rect Supp) 25 mg DC Q6H PRN PRN Reason: N/V IF NPO AND NO IV ACCESS Senna (Sennosides 8.6 Mg Tab) 17.2 mg PO QHS PRN PRN Reason: Constipation Sodium Chloride (Sodium Chloride 0.9% 10 Ml Flush Syringe) 10 ml IV PRN NR Stop: 07/07/21 16:24 Witch Marlen/Glycerin (Witch Marlen/ Glycerin Pad) 1 each TP PRN PRN PRN Reason: Hemorrhoids/cleansing/soothing Mental Status Exam - Vital signs Last Vital Signs Temp 98.3 F 06/27/21 08:10 Pulse 92 H 06/27/21 08:10 Resp 18 06/27/21 08:10 BP 128/87 06/27/21 08:10 Pulse Ox 98 06/27/21 08:30 Results Result Diagrams: 06/26/21 07:22 All other labs normal.
--- NOTE | 2021-06-27 14:58 | Progress Note ---
Assessment and Plan POD#2 C/S doing well 1. Will discharge home if ok with psyche after evaluation today for h/o depression 2. please make appt appt in 10days for wound check in the office All questions encouraged and answered Subjective Date of service: 06/27/21 Principal diagnosis: POD#2 Interval history: pt has no complaints and is ok going home today. pt is bottle feeding. Pain controlled with meds. Diet tolerated. Voiding well without problems; vag bleed less than a period. Objective - Constitutional Vitals: Vital Signs - 12hr 06/27/21 06/27/21 06/27/21 06:23 08:10 08:30 Temperature 98.3 F Pulse Rate 92 H Respiratory 18 18 Rate Blood Pressure 128/87 O2 Sat by Pulse 99 Oximetry O2 Sat by Pulse 98 Oximetry [ Bilateral Throughout] General appearance: Present: no acute distress - Neck Neck: normal ROM - Respiratory Respiratory effort: normal - Breasts Breasts: deferred - Cardiovascular Rhythm: regular Extremities: No edema - Gastrointestinal General gastrointestinal: Present: soft, other (Incision C/D/I) - Genitourinary Female genitourinary: other (Fundus 2cm below the umbilicus, non-tender; Lochia small) - Integumentary Integumentary: warm, dry - Labs CBC & Chem 7: 06/26/21 07:22 Medications & Allergies - Medications Allergies/Adverse Reactions: Allergies No Known Allergies Allergy (Verified 06/26/21 01:43) Home Medications: Home Medications Medication Instructions Recorded Confirmed Last Taken Type Ferrous Sulfate [Feosol 325 MG tab] 325 mg PO BID #60 tablet 09/08/19 06/26/21 Unknown Rx Ibuprofen [Motrin] 600 mg PO Q6H PRN #60 tablet 09/08/19 06/26/21 Unknown Rx oxyCODONE /ACETAMINOPHEN [Percocet 1 tab PO Q6HR PRN #30 tablet 09/09/19 06/26/21 Unknown Rx 5/325] Ibuprofen [Motrin] 800 mg PO Q8HR PRN #40 tablet 06/25/21 Unknown Rx oxyCODONE /ACETAMINOPHEN [Percocet 1 tab PO Q4HR PRN 21 Days #30 tab 06/25/21 Unknown Rx 5/325] Active Medications: Generic Name Dose Route Start Last Admin Trade Name Freq PRN Reason Stop Dose Admin Acetaminophen 650 mg 06/25/21 17:00 Acetaminophen 325 Mg Tab PO Q4H PRN Fever >100.5/MCGARRY Ferrous Sulfate 325 mg 06/26/21 10:00 06/27/21 08:59 Ferrous Sulfate 325 Mg Tab PO 325 mg QDAY YEVGENIY Administration Oxytocin/Sodium Chloride 30 units in 500 mls @ 0 mls/hr 06/25/21 09:00 Pitocin/Ns 30 Unit/500ml IV TITR YEVGENIY Protocol As Directed Oxytocin/Sodium Chloride 30 units in 500 mls @ 40 mls/hr 06/25/21 17:00 Pitocin/Ns 30 Unit/500ml IV TITR YEVGENIY Protocol Ibuprofen 600 mg 06/25/21 17:00 Ibuprofen 600 Mg Tab PO Q6H PRN Pain, Mild (1-3) Ibuprofen 800 mg 06/25/21 17:00 06/27/21 06:23 Ibuprofen 800 Mg Tab PO 800 mg Q6H PRN Administration Pain, Moderate (4-6) Morphine Sulfate 4 mg 06/25/21 17:00 Morphine 4 Mg/1 Ml Inj IV Q4H PRN Pain , Severe (7-10) Multi-Ingredient Ointment 1 applic 06/25/21 17:00 Lanolin/Zinc/Dimethicone (Lansinoh) 7 Gm TP PRN PRN dryness/cracking Multivitamins/Iron/Calcium 1 each 06/26/21 10:00 06/27/21 08:59 [id number] Fumarate-Folic Acid Vit Tab PO 1 each QDAY YEVGENIY Administration Naloxone HCl 0.1 mg 06/25/21 17:00 Naloxone 0.4 Mg/1 Ml Inj IV Q2MIN PRN Res Rate </= 8 or 02 SAT < 92% Ondansetron HCl 4 mg 06/25/21 17:00 Ondansetron 4 Mg/2 Ml Inj IV Q8H PRN Nausea And Vomiting Oxycodone/Acetaminophen 2 tab 06/25/21 17:00 06/27/21 08:59 Oxycodone /Acetaminophen 5-325mg Tab PO 2 tab Q4H PRN Administration Pain, Moderate (4-6) Promethazine HCl 25 mg 06/25/21 17:00 Promethazine 25 Mg Rect Supp DE Q6H PRN N/V IF NPO AND NO IV ACCESS Senna 17.2 mg 06/25/21 22:00 Sennosides 8.6 Mg Tab PO QHS PRN Constipation Sodium Chloride 10 ml 06/25/21 16:25 Sodium Chloride 0.9% 10 Ml Flush Syringe IV 07/07/21 16:24 PRN NR Witch Marlen/Glycerin 1 each 06/25/21 17:00 Witch Marlen/ Glycerin Pad TP PRN PRN Hemorrhoids/cleansing/soothing
--- NOTE | 2021-06-27 15:06 | Discharge Summary ---
Providers - Providers Date of Admission: 06/25/21 12:19 Attending physician: HAWA TERRY 06/27/21 09:00 psychiatry consult [Consult to Mental Health] [CONS] Routine Reason For Exam: edinburgh scale Primary care physician: HAWA TERRY Hospitalization Reason for admission: section (morbid obesity; declines TOLAC) Procedure: repeat low transverse Episiotomy: none Laceration: none Incision: normal, dry, intact Other procedures: none complications: none Discharge diagnosis: IUP at term delivered, other (Sars Cov2+) Hospital course: Term preg with previous c/s and declines TOLAC; pt had repeat c/section uncomplicated. Routine Covid testing was positive and pt remained asymptomatic. Pt was seen on POD#2 by psyche with pt's history of depression 1. Discharge home tomorrow if pt stable; pt has to wait with change in plans by peds to send baby home today 2. Routine post op care Condition at discharge: Good Disposition: 01 HOME / SELF CARE / HOMELESS Plan - Discharge Medications Prescriptions: Ibuprofen [Motrin] 800 mg PO Q8HR PRN #40 tablet PRN Reason: Pain, Moderate (4-6) oxyCODONE /ACETAMINOPHEN [Percocet 5/325] 1 tab PO Q4HR PRN 21 Days #30 tab PRN Reason: Pain , Severe (7-10) - Provider Discharge Summary Additional instructions: [] Smoking cessation referral if applicable(refer to patient education folder for contact #) [] Refer to [facility] Booklet Call your doctor immediately for: * Fever > 100.5 * Heavy vaginal bleeding ( >1 pad per hour) * Severe persistent headache * Shortness of breath * Reddened, hot, painful area to leg or breast * Drainage or odor from incision. * Keep incision clean and dry at all times and follow doctor's instructions regarding bathing/showering - Follow up plan Follow up: HAWA TERRY MD [Primary Care Provider] - 10 Days Forms: [facility] Discharge Summary
[2021-06-28] MEDS: oxyCODONE /ACETAMINOPHEN 5-325MG TAB PO PRN (05:15)
[2021-06-28] MEDS: FERROUS SULFATE 325 MG TAB PO SCH (09:26)
[2021-06-28] MEDS: PRENATAL VIT27-FE FUMARATE-FOLIC ACID VIT TAB PO SCH (09:27)
[2021-06-28] MEDS: IBUPROFEN 800 MG TAB PO PRN ×2 (09:27→15:52)
[2021-06-28 15:49] VITALS: BP 121/79
== END 2021-06-28 16:55 | disposition home or self-care (01) | DRG 786 ==
LOC: TRG 07:11 → APU 07:12 → TRG 12:17 → APU 12:19 → OB 14:54
PROVIDERS: ADMIT Obstetrics & Gynecology; ATTEND Obstetrics & Gynecology
PROC: 10D00Z1 Extraction of Products of Conception, Low, Open Approach (ICD-10-PCS; principal; 2021-06-25)
DX: O98.52 Other viral diseases complicating childbirth (principal); U07.1 COVID-19; O34.211 Maternal care for low transverse scar from previous cesarean delivery; Z20.822 Contact with and (suspected) exposure to COVID-19; O99.214 Obesity complicating childbirth; O90.81 Anemia of the puerperium; E66.01 Morbid (severe) obesity due to excess calories; Z3A.38 38 weeks gestation of pregnancy; Z37.0 Single live birth
CPT/HCPCS: 36415; 76816; 85025; 86592; 86850; 86900; 86901; G0378; J0630; J3490; J7121; J0690; J1100; J1885; J2405; J2765; J7120; U0003